=== PATIENT | female | born 1965 | race Two or more races ===

== ENCOUNTER 2025-01-25 11:01 | Outpatient (REF) | payer OTHER, SELFPAY | END 2025-01-25 11:02 | disposition home or self-care (01) | LOC: HO.LAB 11:01 | PROVIDERS: PCP Student in an Organized Health Care Education/Training Program; Visit Provider Urology | DX: R31.9 Hematuria, unspecified (principal); N39.0 Urinary tract infection, site not specified; Z13.9 Encounter for screening, unspecified; N20.0 Calculus of kidney; R80.9 Proteinuria, unspecified | CPT/HCPCS: 81003; 87086; 88112; 99202 ==

== ENCOUNTER 2025-01-25 11:01 | Outpatient (AMB) | payer OTHER, SELFPAY ==
--- NOTE | 2025-01-25 11:12 | A.OFFVIS_ITS ---
Intake Visit Reasons: history of kidney stones/hx hematuria Intake Note: New patient presents today for initial visit for hx of kidny stones/hx hematuria Urology Medication:None Blood Thinner:None Antibiotic Allergies:None Allergies No Known Allergies Allergy (Verified 01/25/25 11:13) Medication List - Last Reconciled 01/25/25 by Grayson Sweeney MD amlodipine 5 mg PO DAILY atorvastatin (Lipitor) 20 mg PO DAILY HPI Comments Details: 01/25/25 History of Present Illness - The patient is a 59-year-old female presenting with a history of kidney stones and hematuria. - She has had multiple episodes of kidney stones, with one leading to sepsis due to obstruction. - Recently, stones were present bilaterally, and she retrieved one stone, which was lost before analysis. - Due to insurance changes, she has to seek a new urologist. - She states was instructed that she has a history of calcium oxalate stones and should avoid calcium supplements. - Hematuria was noted approximately three months ago and may have been associated with kidney stones. - Today's urinalysis indicated leukocytes 2+, protein 1+, and no blood. Results - Urinalysis: Leukocytes 2+, Protein 1+, Blood negative [facility] Medical History (Updated 01/26/25 @ 07:37 by Grayson Sweeney MD) Gall bladder disease HTN (hypertension) Obesity Surgical History (Updated 01/25/25 @ 12:06 by Idania Rubio) Kidney stones History of tubal ligation Review of Systems Const All systems reviewed & are unremarkable except as noted in HPI and below Reports no additional complaints Eyes Reports no additional complaints ENT Reports no additional complaints Card Reports no additional complaints Resp Reports no additional complaints GI Reports no additional complaints Reports as per HPI Musc Reports no additional complaints Skin/Breast Reports system reviewed and no additional complaints, except as documented Neuro Reports no additional complaints Psych Reports no additional complaints Endo Reports no additional complaints Darion/Lymph Reports no additional complaints Aller/Immun Reports no additional complaints Physical Exam Const General: cooperative, healthy appearing and no acute distress Orientation/consciousness: patient oriented x3 HEENT Head: Yes normal to inspection, Yes normocephalic and Yes atraumatic Eyes Conjunctivae: conjunctivae normal Neck Neck: Yes normal visual inspection and Yes trachea midline Chest Chest palpation & inspection: normal inspection of the chest Resp Effort & Inspection: normal respiratory effort GI Inspection: Yes normal to inspection Neuro General: patient oriented x3 Psych Appearance: grossly normal Results AMB Urinalysis, Automated 2 UA Leukoctes 125 Yuli/uL Last Edit by Idania Rubio on 01/25/25 16:56 UA Nitrite Negative Last Edit by Idania Rubio on 01/25/25 16:56 UA Urobilinogen 17 mg/dL Last Edit by Idania Rubio on 01/25/25 16:56 UA Protein 0.3 mg/dL Last Edit by Idania Rubio on 01/25/25 16:56 UA pH 6.0 Last Edit by Idania Rubio on 01/25/25 16:56 UA Blood 0 Manish/uL Last Edit by Idania Rubio on 01/25/25 16:56 UA Specific [place] 1.020 Last Edit by Idania Rubio on 01/25/25 16:56 UA Ketone Positive Last Edit by Idania Rubio on 01/25/25 16:56 UA Bilirubin 17 mg/dL Last Edit by Idania Rubio on 01/25/25 16:56 UA Glucose 0 mg/dL Last Edit by Idania Rubio on 01/25/25 16:56 Results Reviewed Results Reviewed: Laboratory Last Values Urine pH (Auto) 6.0 01/25/25 15:38 Specific [place] (Auto) 1.020 01/25/25 15:38 Urine Protein (Auto) 0.3 mg/dL 01/25/25 15:38 Glucose (UA)(Auto) 0 mg/dL 01/25/25 15:38 Urine Ketones (Auto) Positive 01/25/25 15:38 Urine Blood (Auto) 0 Manish/uL 01/25/25 15:38 Urine Nitrite (Auto) Negative 01/25/25 15:38 Urine Bilirubin (Auto) 17 mg/dL 01/25/25 15:38 Urine Urobilinogen (Auto) 17 mg/dL 01/25/25 15:38 Leukocyte Esterase (Auto) 125 Yuli/uL 01/25/25 15:38 Assessment & Plan Assessment & Plan (1) Hematuria: Code(s): R31.9 - Hematuria, unspecified Category: Medical (2) Bilateral kidney stones: Code(s): N20.0 - Calculus of kidney Category: Medical (3) Proteinuria: Code(s): R80.9 - Proteinuria, unspecified Category: Medical Plan Plan - A CT urogram will be ordered to evaluate for kidney stones and any lesions in the urinary tract. - An office cystoscopy will be conducted to assess the bladder for abnormalities. - Urine will be sent for cytology and surveillance culture to rule out other causes of hematuria. - A nephrology referral will be considered if proteinuria persists on follow-up. - Blood work will be performed to assess kidney function prior to CT scan with contrast. Orders: Orders Urine Culture 01/25/25 N39.0 - Urinary tract infection, site not specified Urine Cytology 01/25/25 N39.0 - Urinary tract infection, site not specified Blood Urea Nitrogen 01/25/25 R31.9 - Hematuria, unspecified Creatinine 01/25/25 R31.9 - Hematuria, unspecified AMB Urinalysis Automated 01/25/25 Z13.9 - Encounter for screening, unspecified Medications: New atorvastatin (Lipitor) 20 mg PO DAILY 60 tabs 0RF amlodipine 5 mg PO DAILY 60 tabs 0RF Patient Instructions: The patient had an opportunity to ask questions regarding treatment plan. The patient expressed understanding and agreement with the above treatment plan. The patient is aware they should contact our office by phone for worsening of their current condition or the appearance of new symptoms. Compliance is encouraged with any medications and followup testing that is ordered. It is a privilege to be allowed the opportunity to participate in the urologic care of your patient. If you have any questions or concerns regarding treatment for the above conditions please do not hesitate to contact me. The office telephone contact is [phone]. This note is constructed in part using voice recognition software. While every effort has been made to ensure accuracy chief scientist errors may have been included. Yours sincerely, Grayson Sweeney MD Scribe Plan - Not visible on output: Patient was informed and verbally consented to the use of an ambient scribe for clinic note documentation during this visit. Coding Level of Care Code New Pt Level 4 (37018) Diagnoses Hematuria R31.9 Bilateral kidney stones N20.0 Proteinuria R80.9
--- OUTSIDE RECORDS SUMMARY | 2025-01-25 12:00 | XMS_ITS | Clinical Summary ---
Author Organization [facility] Address [address] [place] [address] Care Team Providers Care Curb Machine Operator Name Role Phone Unavailable Primary Care Provider Unavailabl e Source Comments PLEASE NOTE, if this patient is a minor, it may be UNLAWFUL to discuss sensitive information that is contained in these records (such as FAMILY PLANNING, MENTAL HEALTH or SUBSTANCE ABUSE) with the minor patient's parent or other person without the patient's specific authorization.[facility] Social History Tobacco Use Types Packs/Day Years Used Date Smoking Tobacco: Never Assessed Social Connections Answer Date Recorded Connectedness 0 04/02/2024 Financial Resource Strain Answer Date R ecorded Financial Resource Strain 0 2020 Stress Answer Date Recorded Stress 0 04/02/2021 Physical Activity Answer Date Recorded Physical Activity 0 04/02/2021 Food Insecurity Answer Date Recorded Food 0 04/16/2024 Transportation Needs Answer Date Record ed Transportation 0 04/02/2021 Housing Stability Answer Date Recorded Housing 0 04/02/2021 Safety and Environment Answer Date Дмитрий rded Safety 0 04/02/2021 Utilities Answer Date Recorded Utilities 0 04/02/2021 Employment Answer Date Recorded Stress 0 04/02/2024 Comments Unknown Sex and Gender Information Value Date Recorded Sex Assigned at Not on file Legal Sex Female 10:00 AM PDT Gender Identity Not on file Sexual Orientation Not on file Plan of Treatment Not on file Insurance [employer]
--- OUTSIDE RECORDS SUMMARY | 2025-01-25 12:00 | XMS_ITS | Clinical Summary ---
Author Organization [employer] Address [address] [place] [address] Care Team Providers Care Compressor Station Operator Name Role Phone Unavailable Primary Care Provider Unavailabl e Immunizations Immunization Administration Dates Next Due Hep B, adult 06/24/2020,05/25/2020 Influenza, IIV3, injectable 06/23/2022,1 07/25/2019,07/27/2019,2017,05/09/2017 Pfizer Covid-19 Vaccine 12+ 05/08/2023,1 09/11/2020,10/30/2020,2020 Pfizer Covid-19 Vaccine 12+ Bivalent 05/04/2022 Tdap 01/31/2016 Zoster, Recombinant 09/17/2022,07/17/2022 Social History Tobacco Use Types Packs/Day Years Used Date Smoking Tobacco: Never Assessed Comments Unknown Sex and Gender Information Value Date Recorded Sex Assigned at Female 05/21/2022 10:32 AM EDT Legal Sex Female 10:32 AM EDT Gender Identity Female 05/21/2022 10:32 AM EDT Sexual Orientation Straight 05/21/2022 10 :32 AM EDT Plan of Treatment Health Maintenance Due Date Last Done Comments CT Colonography 1966 Colonoscopy 1966 Colorectal Cancer Screening 1966 Depression Screening 1966 FIT DNA/Cologuard 1966 FIT 1966 FOBT 1966 HIV Screening 1966 Lipid Panel 1966 SDOH Screening 1966 Sigmoidoscopy 1966 Disability Screening 1966 Alcohol/Substance Use Screening 1978 Tobacco Screening 1978 Hepatitis C Screening 1984 Pap Smear 1987 Cervical Cancer Screening 1996 HPV/Cotest 1996 Mammogram 2006 Pneumococcal Vaccine: 50+ Years (1 of 1 - PCV) 2016 Hepatitis B Vaccines (3 of 3 - 19+ 3-dose series) 11/22/2020 06/24/2020, 05/25/2020 COVID-19 Vaccine (6 - 2023- season) 2024 05/08/2023, 05/04/2022, 07/11/2021, Additional history exists Influenza Vaccine (#1) 2025 2, 05/25/2020, 07/27/2019, Additional history exists DTaP/Tdap/Td Vaccines (2 - Td or Tdap) 01/30/2026 01/31/2016 RSV Patients and Patients Aged 60 years or older (1 - 1-dose 75+ series) 2041 Zoster Vaccines Completed 09/17/2022, 07/17/2022 HIB Vaccines Aged Out No longer eligi ble based on patient's age to complete this topic HPV Vaccines Aged Out No longer eligi ble based on patient's age to complete this topic Hepatitis A Vaccines Aged Out No long er eligible based on patient's age to complete this topic IPV Vaccines Aged Out No longer eligi ble based on patient's age to complete this topic Meningococcal B Vaccine Aged Out No l onger eligible based on patient's age to complete this topic Meningococcal Vaccine Aged Out No kathleen jeremi eligible based on patient's age to complete this topic RSV under 20 months Aged Out No longe r eligible based on patient's age to complete this topic Rotavirus Vaccines Aged Out No longer eligible based on patient's age to complete this topic Insurance BE [facility]
== END 2025-01-25 11:56 | disposition home or self-care (01) ==
LOC: HO.HUSH 11:02
PROVIDERS: PCP Student in an Organized Health Care Education/Training Program; Visit Provider Urology
DX: R31.9 Hematuria, unspecified (principal); N20.0 Calculus of kidney; R80.9 Proteinuria, unspecified
CPT/HCPCS: 99204

== ENCOUNTER 2025-04-07 12:28 | Outpatient (REF) | payer OTHER, SELFPAY ==
[2025-04-07 13:26] LABS: Blood Urea Nitrogen 12 mg/dL (9-16); Estimated Glomerular Filt Rate > 60
--- OUTSIDE RECORDS SUMMARY | 2025-04-07 15:58 | XMS_ITS | Clinical Summary ---
Author Organization [employer] Address [address] [facility] [address] [place] [address] Care Team Providers Care Cut Off Saw Tender Metal Name Role Phone Unavailable Primary Care Provider [...] 11/22/2020 06/24/2020, 05/25/2020 COVID-19 Vaccine (6 - season) 2025 05/08/2023, 05/04/2022, 07/11/2021, Additional history exists Influenza [...] age to complete this topic Insurance BE [facility]
--- OUTSIDE RECORDS SUMMARY | 2025-04-07 15:58 | XMS_ITS | Clinical Summary ---
Author Organization [facility] Address [address] [place] [address] Care Team Providers Care Bulb Grader Name Role Phone Unavailable Primary Care Provider [...]
== END 2025-04-07 12:29 | disposition home or self-care (01) ==
LOC: HO.LAB 12:28
PROVIDERS: Visit Provider Urology
DX: R31.9 Hematuria, unspecified (principal)
CPT/HCPCS: 36415; 82565; 84520

== ENCOUNTER 2025-04-08 13:31 | Outpatient (REF) | payer OTHER, SELFPAY ==
--- NOTE | ~2025-04-08 | CT_ITS ---
EXAMINATION: CT ABDOMEN PELVIS UROGRAPHY WITHOUT THEN WITH IV CONTRAST CLINICAL INFORMATION: N39.0 - Urinary tract infection, site not specified COMPARISON: None available. TECHNIQUE: Noncontrast CT of the abdomen and pelvis is performed followed by split bolus contrast-enhanced images using 85 cc Omnipaque 350 contrast. Postcontrast imaging is performed during the excretion phase. Sagittal and coronal reformatted images were obtained on the technologist's workstation for both the precontrast and postcontrast phases. This CT examination was performed using dose optimization techniques as appropriate, variously including the following: *Automated exposure control *Adjustment of mA and/or kV according to patient size (this includes techniques or standardized protocols for targeted exams where dose is matched to indication/reason for exam; i.e. extremities or head) *Use of iterative reconstruction technique FINDINGS: LOWER CHEST: No focal consolidation. No pleural effusions. LIVER: No focal lesions. GALLBLADDER/BILIARY TREE: Status post cholecystectomy. No intrahepatic biliary ductal dilatation. Prominence of the common bile duct measuring 0.7 cm in diameter is likely secondary to the postcholecystectomy status. PANCREAS: Unremarkable. SPLEEN: No splenomegaly. No focal lesion. ADRENAL GLANDS: No nodules. KIDNEYS AND URETERS: [place] of small calcifications in the lower pole of the left kidney could represent nonobstructive stones. No hydronephrosis or solid appearing renal lesions. No suspicious filling defects within the bilateral collecting system. BLADDER: Decompressed urinary bladder. No intravesical stones or obvious focal wall thickening. GASTROINTESTINAL TRACT: Postsurgical changes in the stomach. No bowel distention. Normal appendix in the right lower quadrant. Sigmoid colon diverticulosis. PERITONEUM/RETROPERITONEUM: No free fluid or free air. ABDOMINAL WALL: Tiny fat-containing umbilical hernia. LYMPH NODES: No lymphadenopathy. VASCULAR: Mild atherosclerotic disease with calcifications. No abdominal aortic aneurysm. Prominence of the pelvic vasculature and gonadal veins; the appropriate clinical setting this could represent pelvic congestion syndrome. PELVIC VISCERA: Lobulation of the left uterine contour, may be due to focal lesions such as leiomyoma or due to the adjacent ovary. OSSEUS STRUCTURES: Bilateral pars defect of L5. Grade 2 anterolisthesis of L5 on S1. Sclerotic changes at the level of the bilateral sacroiliac joints. No acute or suspicious osseous abnormality. CT/CT urogram IMPRESSION: 1. Multiple nonobstructing stones in the lower pole of the left kidney. 2. Lobulated appearance of the left side of the uterus could be due to uterine leiomyomas or adjacent ovary. Correlate with pelvic ultrasound. 3. Spondylolisthesis at L5-S1. 4. Findings suggestive of bilateral sacroiliitis. Electronically signed by: Gabrielle Morales MD 04/08/2025 03:07 PM EDT
--- OUTSIDE RECORDS SUMMARY | 2025-04-08 15:31 | XMS_ITS | Clinical Summary ---
Author Organization [facility] Address [address] [place] [address] Care Team Providers Care Drop Forge Operator Name Role Phone Unavailable Primary Care [...]
--- OUTSIDE RECORDS SUMMARY | 2025-04-08 15:31 | XMS_ITS | Clinical Summary ---
Author Organization [facility] Address [address] [place] [address] Care Team Providers Care Strategic Sourcing Manager Name Role Phone Suni Madera MD Primary Care Provider [phone] Social History Tobacco Use Types Packs/Day Years Used Date Smoking Tobacco: Never Assessed Comments Unknown Sex and Gender Information Value Date Recorded Sex Assigned at Not on file Legal Sex Female 4:52 PM EST Gender Identity Not on file Sexual Orientation Not on file Plan of Treatment Health Maintenance Due Date Last Done Comments Breast Cancer Screening 1966 DTaP,Tdap,and Td Vaccines (1 - Tdap) 1985 Hepatitis B Vaccines (1 of 3 - 19+ 3-dose series) 1985 Cervical Cancer Screening: P ap Smear 1987 Pneumococcal Vaccine: 50+ Ye ars (1 of 1 - PCV) 2016 Zoster Vaccines (1 of 2) 2016 Depression Screening 07/22/2024 COVID-19 Vaccine (1 - 2023-2 5 season) 2025 Influenza Vaccine (#1) 2025 HIB Vaccines Aged Out No longer eligi [...] on patient's age to complete this topic MMR Vaccines Aged Out No longer eligi ble based on patient's age to complete this topic Meningococcal ACWY Vaccine Aged Out N o longer eligible based on patient's age to complete this topic Meningococcal B Vaccine Aged Out No l onger eligible based on patient's age to complete this topic RSV Immunization Patients Un timbo 20 months Aged Out No longer eligible b ased on patient's age to complete this topic Varicella Vaccines Aged Out No longer eligible based on patient's age to complete this topic Advance Directives Documents on File Type Date Recorded Patient Asbestos Removal Worker Expl anation Health Care Decision (hx) 02/22/2021 AD HU DIRECTIVE Health Care Decision (hx) 02/22/2021 AD HU DIRECTIVE Health Care Decision (hx) 02/20/2021 AD HU DIRECTIVE Health Care Decision (hx) 02/20/2021 AD HU DIRECTIVE Health Care Decision (hx) 02/28/2017 AD HU DIRECTIVE Health Care Decision (hx) 02/28/2017 AD HU DIRECTIVE Health Care Decision (hx) 02/28/2017 AD HU DIRECTIVE Health Care Decision (hx) 02/28/2017 AD HU DIRECTIVE Health Care Decision (hx) 09/22/2014 AD HU DIRECTIVE Health Care Decision (hx) 09/22/2014 AD HU DIRECTIVE Health Care Decision (hx) 09/22/2014 AD HU DIRECTIVE Health Care Decision (hx) 09/22/2014 AD HU DIRECTIVE Care Teams Strategic Sourcing Manager Relationship Specialty Start Date End Date Suni Madera MD PCP - General Internal Medicine 04/13/21
--- OUTSIDE RECORDS SUMMARY | 2025-04-08 15:31 | XMS_ITS | Clinical Summary ---
Author Organization [employer] Address [address] [facility] [address] [place] [address] Care Team Providers Care Tank Shop Supervisor Name Role Phone Unavailable Primary Care Provider [...] age to complete this topic Insurance BE [facility]
== END 2025-04-08 13:32 | disposition home or self-care (01) ==
LOC: HO.CT 13:31
PROVIDERS: Visit Provider Urology
DX: N39.0 Urinary tract infection, site not specified (principal)
CPT/HCPCS: 74178

== ENCOUNTER → 2025-04-08 13:33 | Outpatient (BNV) | payer OTHER, SELFPAY | PROVIDERS: Visit Provider Radiology Body Imaging | DX: N20.0 Calculus of kidney (principal); K57.30 Diverticulosis of large intestine without perforation or abscess without bleeding | CPT/HCPCS: 74178 ==

== ENCOUNTER 2025-04-15 10:18 | Outpatient (AMB) | payer OTHER, SELFPAY ==
--- NOTE | 2025-04-15 10:39 | A.OFFVIS_ITS ---
Intake Visit Reasons: Cysto/CT Intake Note: Patient presents today for a cysto/US * 04/07 BUN: 12/Creatinine:0.62 * 04/08 CT Urogram Urology Medication:None Blood Thinner:None Antibiotic Allergies:None University Services Program Associate Required: Yes Allergies No Known Allergies Allergy (Verified 04/15/25 10:39) Medication List - Last Reconciled 04/15/25 by Grayson Sweeney MD amlodipine 5 mg PO DAILY atorvastatin (Lipitor) 20 mg PO DAILY HPI Comments Details: 04/15/2025--the patient is here in follow-up. She had an episode of gross hematuria a few months ago and was sent for evaluation for hematuria workup. The patient has had a history of kidney stones. The patient had a CT urogram which notes left kidney stones no suspicious renal masses. Urine cytology sent on 01/25/2025 was negative for malignant cells. Also on CT scan there is an area in the uterus that is lobulated, the patient indicates she is followed by her teacher theater arts for known uterine fibroids. History of Present Illness The patient is a 59-year-old female presenting with gross hematuria. She experienced an episode of gross hematuria a few months ago, leading to a hematuria workup. A CT urogram identified kidney stones in the left kidney, with no suspicious renal masses. Urine cytology from 01/25/25 was negative for malignant cells. 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 A 24-hour urine collection is planned to evaluate mineral excretion for kidney stone management. Minimal proteinuria was noted, and a nephrology referral is planned for further evaluation. Results - CT urogram: Left kidney stones, no suspicious renal masses - Urine cytology (01/25/25): Negative for malignant cells Plan 1. Gross Hematuria - Likely related to kidney stones; cystoscopy declined by patient 2. Kidney Stones - 24-hour urine collection planned to evaluate mineral excretion. - Nephrology referral for management and evaluation of minimal proteinuria. - left Shockwave lithotripsy scheduled 01/25/25 History of Present Illness - The patient is a 59-year-old female presenting with a history of kidney stones and hematuria. - She has had multiple episodes of kidney stones, with one leading to sepsis due to obstruction. - Recently, stones were present bilaterally, and she retrieved one stone, which was lost before analysis. - Due to insurance changes, she has to seek a new urologist. - She states was instructed that she has a history of calcium oxalate stones and should avoid calcium supplements. - Hematuria was noted approximately three months ago and may have been associated with kidney stones. - Today's urinalysis indicated leukocytes 2+, protein 1+, and no blood. Results - Urinalysis: Leukocytes 2+, Protein 1+, Blood negative [facility] Medical History Gall bladder disease HTN (hypertension) Obesity Surgical History Kidney stones History of tubal ligation Review of Systems Const All systems reviewed & are unremarkable except as noted in HPI and below Reports no additional complaints Eyes Reports no additional complaints ENT Reports no additional complaints Card Reports no additional complaints Resp Reports no additional complaints GI Reports no additional complaints Reports as per HPI Musc Reports no additional complaints Skin/Breast Reports system reviewed and no additional complaints, except as documented Neuro Reports no additional complaints Psych Reports no additional complaints Endo Reports no additional complaints Darion/Lymph Reports no additional complaints Aller/Immun Reports no additional complaints Results Reviewed Results Reviewed: Date of Service: 04/08/25 EXAMINATION: CT ABDOMEN PELVIS UROGRAPHY WITHOUT THEN WITH IV CONTRAST CLINICAL INFORMATION: N39.0 - Urinary tract infection, site not specified COMPARISON: None available. TECHNIQUE: Noncontrast CT of the abdomen and pelvis is performed followed by split bolus contrast-enhanced images using 85 cc Omnipaque 350 contrast. Postcontrast imaging is performed during the excretion phase. Sagittal and coronal reformatted images were obtained on the technologist's workstation for both the precontrast and postcontrast phases. This CT examination was performed using dose optimization techniques as appropriate, variously including the following: *Automated exposure control *Adjustment of mA and/or kV according to patient size (this includes techniques or standardized protocols for targeted exams where dose is matched to indication/reason for exam; i.e. extremities or head) *Use of iterative reconstruction technique FINDINGS: LOWER CHEST: No focal consolidation. No pleural effusions. LIVER: No focal lesions. GALLBLADDER/BILIARY TREE: Status post cholecystectomy. No intrahepatic biliary ductal dilatation. Prominence of the common bile duct measuring 0.7 cm in diameter is likely secondary to the postcholecystectomy status. PANCREAS: Unremarkable. SPLEEN: No splenomegaly. No focal lesion. ADRENAL GLANDS: No nodules. KIDNEYS AND URETERS: [place] of small calcifications in the lower pole of the left kidney could represent nonobstructive stones. No hydronephrosis or solid appearing renal lesions. No suspicious filling defects within the bilateral collecting system. BLADDER: Decompressed urinary bladder. No intravesical stones or obvious focal wall thickening. GASTROINTESTINAL TRACT: Postsurgical changes in the stomach. No bowel distention. Normal appendix in the right lower quadrant. Sigmoid colon diverticulosis. PERITONEUM/RETROPERITONEUM: No free fluid or free air. ABDOMINAL WALL: Tiny fat-containing umbilical hernia. LYMPH NODES: No lymphadenopathy. VASCULAR: Mild atherosclerotic disease with calcifications. No abdominal aortic aneurysm. Prominence of the pelvic vasculature and gonadal veins; the appropriate clinical setting this could represent pelvic congestion syndrome. PELVIC VISCERA: Lobulation of the left uterine contour, may be due to focal lesions such as leiomyoma or due to the adjacent ovary. OSSEUS STRUCTURES: Bilateral pars defect of L5. Grade 2 anterolisthesis of L5 on S1. Sclerotic changes at the level of the bilateral sacroiliac joints. No acute or suspicious osseous abnormality. IMPRESSION: 1. Multiple nonobstructing stones in the lower pole of the left kidney. 2. Lobulated appearance of the left side of the uterus could be due to uterine leiomyomas or adjacent ovary. Correlate with pelvic ultrasound. 3. Spondylolisthesis at L5-S1. Urine cytology- Collected: 01/25/25 Location: .LAB Received: 01/26/25 Diagnosis Urine, cytology: Negative for high-grade urothelial carcinoma. COMMENT: Review of the cytology preparation demonstrates a cellular specimen composed of squames and urothelial cells. Mixed inflammatory cells are noted. There is no significant atypia seen. Clinical History Urinary tract infection, site not specified Material Received Urine Gross Description Received is 5 cc of cloudy yellow fluid from which a ThinPrep slide is prepared. Assessment & Plan Assessment & Plan (1) Hematuria: Code(s): R31.9 - Hematuria, unspecified Category: Medical (2) Proteinuria: Code(s): R80.9 - Proteinuria, unspecified Category: Medical (3) Kidney stone on left side: Code(s): N20.0 - Calculus of kidney Category: Medical (4) Kidney stones, calcium oxalate monohydrate: Code(s): N20.0 - Calculus of kidney Category: Medical Plan Plan 1. Gross Hematuria - Likely related to kidney stones; cystoscopy declined by patient 2. Kidney Stones - 24-hour urine collection planned to evaluate mineral excretion. - Nephrology referral for management and evaluation of minimal proteinuria. Urinalysis in January protein 1+, today's urine trace proteinuria - left Shockwave lithotripsy scheduled Orders: Referrals Nephrology Referral N20.0 - Calculus of kidney, R80.9 - Proteinuria, unspecified Patient Instructions: The patient had an opportunity to ask questions regarding treatment plan. The patient expressed understanding and agreement with the above treatment plan. The patient is aware they should contact our office by phone for worsening of their current condition or the appearance of new symptoms. Compliance is encouraged with any medications and followup testing that is ordered. It is a privilege to be allowed the opportunity to participate in the urologic care of your patient. If you have any questions or concerns regarding treatment for the above conditions please do not hesitate to contact me. The office telephone contact is [phone]. This note is constructed in part using voice recognition software. While every effort has been made to ensure accuracy kitchen and bath designer errors may have been included. Yours sincerely, Grayson Sweeney MD Scribe Plan - Not visible on output: Patient was informed and verbally consented to the use of an ambient scribe for clinic note documentation during this visit. Coding Level of Care Code Est Pt Level 4 (22755) Complex EM visit Add On G2211 Diagnoses Hematuria R31.9 Proteinuria R80.9 Kidney stone on left side N20.0 Kidney stones, calcium oxalate monohydrate N20.0
== END 2025-04-15 11:21 | disposition home or self-care (01) ==
LOC: HO.HUSH 10:19
PROVIDERS: PCP Student in an Organized Health Care Education/Training Program; Visit Provider Urology
DX: R31.9 Hematuria, unspecified (principal); R80.9 Proteinuria, unspecified; N20.0 Calculus of kidney
CPT/HCPCS: 99214; G2211

== ENCOUNTER → 2025-04-15 10:18 | Outpatient (BNVA) | payer OTHER, SELFPAY | PROVIDERS: PCP Student in an Organized Health Care Education/Training Program; Visit Provider Urology | DX: N20.0 Calculus of kidney (principal); R80.9 Proteinuria, unspecified; R31.9 Hematuria, unspecified | CPT/HCPCS: 81003; 99212 ==

== ENCOUNTER 2025-05-05 14:19 | Outpatient (AMB) | payer OTHER, SELFPAY ==
--- NOTE | 2025-05-05 14:29 | HO.NEPHOV ---
Vital Signs 05/05/25 14:31 Height 5 ft Weight 184 lb BMI 35.9 BP 118/78 Blood Pressure Location Lt brachial Position Sitting Pulse 76 Pulse Source Pulse Oximeter Pulse Oximetry (%) 98 Oxygen Delivery Method Room Air Intake Visit Reasons: INP: Calculus of kidney, Proteinuria, confirmed Hotel Operations Manager Required: Yes Hotel Operations Manager Name: Juan Manuel [id number] Accompanied by: Self / Same As Patient Allergies No Known Allergies Allergy (Verified 05/05/25 14:33) HPI Comments Details: 59-year-old lady with past medical history of nephrolithiasis is referred to Nephrology Clinic for evaluation of proteinuria She underwent CT urogram which showed multiple nonobstructing stones in the lower pole of left kidney. 1-2 times a year for about 3 years and once she had complicated UTI and sepsis. hong konger interpretor: Juan Manuel Murdock [id number] [facility] Medical History Gall bladder disease HTN (hypertension) Obesity Surgical History Kidney stones History of tubal ligation Review of Systems Const Details: Const : no body aches, no chills, no excessive sweating and no fatigue Eyes: no blurry vision and no change in vision ENT: no bleeding gums and no change in voice, no dizziness Card: no chest pain, no shortness of breath, no orthopnea, no PND Resp: no cough, no excessive phlegm production, no SOB GI: no abdominal pain and no nausea, no vomiting : no hematuria, no urinary frequency and no difficulty voiding Musc: no abnormal gait, no bone pain Neuro: no abnormal movements, no weakness Psych: no behavioral changes and no change in appetite Endo: no change in body appearance, no fatigue Physical Exam General: not in any acute distress, comfortable, sitting on the chair Nutritional Appearance: well nourished and weight Eyes: normal position, no icterus Neck: No lymphadenopathy, no thyromegaly Resp: bilateral air entry equal, no added sounds present Cardio: normal S1, S2 heard, no murmur heard, no edema GI: soft, nontender, no guarding, no hepatosplenomegaly : bladder normal to inspection, bladder normal to palpation, no renal angle tenderness Skin: no rashes or lesions noted and elasticity normal Neuro: oriented to person, oriented to place, oriented to time and moves all extremities Results Reviewed Nephrology Results: BUN, (9-16) 12 mg/dL 04/07/25 Creatinine, (0.5-1.4) 0.62 mg/dL 04/07/25 Assessment & Plan Assessment & Plan (1) Bilateral kidney stones: Code(s): N20.0 - Calculus of kidney Category: Medical (2) Proteinuria: Code(s): R80.9 - Proteinuria, unspecified Category: Medical Plan Proteinuria: - has proteinuria on dipstick - will quantify proteinuria and see if she needs further workup Kidney stones: - secondary to calcium oxalate/phosphate, uric acid stones - urine pH:6.0 - pending litholink evaluation - will get PTH, Vitamin-D level, Phosphorus, Mg - advised the patient for fluid intake at least 3 L per day, more so in summer - low-sodium diet, increased dairy products with the meals, increased [place] and citrous intake (without added sugar) - decrease animal protein, avoid sugar sweetened sodas, fruit punch, grapefruit and large volume cranberry juice Orders: Orders Microalbumin, Random (w Creat) Today N20.0 - Calculus of kidney, R80.9 - Proteinuria, unspecified Total Protein Urine Random Today N20.0 - Calculus of kidney, R80.9 - Proteinuria, unspecified Vitamin D 25-OH Total Today N20.0 - Calculus of kidney, R80.9 - Proteinuria, unspecified Parathyroid Hormone Intact Today N20.0 - Calculus of kidney, R80.9 - Proteinuria, unspecified Phosphorus Today N20.0 - Calculus of kidney, R80.9 - Proteinuria, unspecified Basic Metabolic Panel Today N20.0 - Calculus of kidney, R80.9 - Proteinuria, unspecified UA and rflx microscopic Today N20.0 - Calculus of kidney, R80.9 - Proteinuria, unspecified Creatinine Urine Today N20.0 - Calculus of kidney, R80.9 - Proteinuria, unspecified Uric Acid Today N20.0 - Calculus of kidney, R80.9 - Proteinuria, unspecified Coding Level of Care Code New Pt Level 4 (14906) Diagnoses Bilateral kidney stones N20.0 Proteinuria R80.9
[2025-05-05 14:31] VITALS: BP 118/78; PULSE 76; O2SAT 98; BMI 35.9
--- OUTSIDE RECORDS SUMMARY | 2025-05-05 18:03 | XMS_ITS | Clinical Summary ---
Author Organization [employer] Address [address] [place] [address] Care Team Providers Care Tempering Oven Operator Name Role Phone Unavailable Primary Care [...] age to complete this topic Insurance BE [facility]
--- OUTSIDE RECORDS SUMMARY | 2025-05-05 18:03 | XMS_ITS | Clinical Summary ---
Author Organization [facility] Address [address] [place] [address] Care Team Providers Care Fitness Leader Name Role Phone Unavailable Primary Care Provider [...]
--- OUTSIDE RECORDS SUMMARY | 2025-05-05 18:03 | XMS_ITS | Clinical Summary ---
Author Organization [facility] Address [address] [place] [address] Care Team Providers Care Train Planner Name Role Phone Suni Madera MD Primary Care Provider [phone] Social History Tobacco Use Types Packs/Day Years [...] 5 season) 2025 Influenza Vaccine (#1) 2025 RSV Immunization Adult Patie nts (1 - 1-dose 75+ series) 2041 HIB Vaccines Aged Out No longer eligi [...] Documents on File Type Date Recorded Patient Premix Operator Concentrate Expl anation Health Care Decision (hx) 02/22/2021 [...] (hx) 09/22/2014 AD HU DIRECTIVE Care Teams Train Planner Relationship Specialty Start Date End Date Suni Madera MD PCP - General Internal Medicine 04/13/21
== END 2025-05-05 15:09 | disposition home or self-care (01) ==
LOC: HO.HKAS 14:20
PROVIDERS: PCP Student in an Organized Health Care Education/Training Program; Referring Provider Urology; Visit Provider Internal Medicine Critical Care Medicine
DX: N20.0 Calculus of kidney (principal); R80.9 Proteinuria, unspecified
CPT/HCPCS: 99204

== ENCOUNTER → 2025-05-05 14:19 | Outpatient (BNVA) | payer OTHER, SELFPAY | PROVIDERS: PCP Student in an Organized Health Care Education/Training Program; Referring Provider Urology; Visit Provider Internal Medicine Critical Care Medicine | DX: N20.0 Calculus of kidney (principal); R80.9 Proteinuria, unspecified | CPT/HCPCS: 99202 ==

== ENCOUNTER 2025-05-18 10:51 | Outpatient (REF) | payer OTHER, SELFPAY ==
[2025-05-18 13:09] LABS: Appearance Urine Clear; Glucose Urine UA Negative (Negative); PH 6.0 (5.0-9.0); Specific Gravity - Urine >= 1.030 (1.005-1.025); UMIC TRIGGER UA YES
--- OUTSIDE RECORDS SUMMARY | 2025-05-18 13:56 | XMS_ITS | Clinical Summary ---
Author Organization [facility] Address [address] [place] [address] Care Team Providers Care Driver/Merchandiser Name Role Phone Suni Madera MD Primary Care Provider [phone] Social History Tobacco Use Types Packs/Day Years [...] Documents on File Type Date Recorded Patient Environmental Monitoring Technician Expl anation Health Care Decision (hx) 02/22/2021 [...] (hx) 09/22/2014 AD HU DIRECTIVE Care Teams Driver/Merchandiser Relationship Specialty Start Date End Date Suni Madera MD PCP - General Internal Medicine 04/13/21
--- OUTSIDE RECORDS SUMMARY | 2025-05-18 13:56 | XMS_ITS | Clinical Summary ---
Author Organization [employer] Address [address] [place] [address] Care Team Providers Care Dopeman Name Role Phone Unavailable Primary Care Provider [...] age to complete this topic Insurance BE [facility]
[2025-05-18 14:16] LABS: Parathyroid Hormone Intact 126.8 pg/mL (8.7-77.1)
[2025-05-18 14:22] LABS: Microalbum/Creatinine Ratio Ur 6.6 ug/mg cr (<30); Total Protein Urine Random 24 mg/dL (<12)
[2025-05-18 18:33] LABS: Anion Gap 13 (12-20); Blood Urea Nitrogen 13 mg/dL (9-16); Calcium 9.3 mg/dL (8.4-10.2); Carbon Dioxide 26 mmol/L (22-29); Chloride 107 mmol/L (96-108); Estimated Glomerular Filt Rate > 60; Potassium 3.2 mmol/L (3.3-5.1); Sodium 143 mmol/L (135-145); Uric Acid 5.8 mg/dL (2.4-5.7)
== END 2025-05-18 10:52 | disposition home or self-care (01) ==
LOC: HO.HKASLDS 10:51
PROVIDERS: Visit Provider Internal Medicine Critical Care Medicine
DX: N20.0 Calculus of kidney (principal); R80.9 Proteinuria, unspecified
CPT/HCPCS: 36415; 80048; 81001; 81003; 82043; 82306; 82570; 83970; 84100; 84156; 84550

== ENCOUNTER 2025-05-26 07:33 | Day surgery (SDC) | payer OTHER, SELFPAY ==
--- OUTSIDE RECORDS SUMMARY | 2025-05-12 07:58 | XMS_ITS | Clinical Summary ---
Author Organization [facility] Address [address] [place] [address] Care Team Providers Care Instrument Lens Generator Name Role Phone Unavailable Primary Care Provider [...]
--- OUTSIDE RECORDS SUMMARY | 2025-05-12 07:58 | XMS_ITS | Clinical Summary ---
Author Organization [employer] Address [address] [place] [address] Care Team Providers Care Project Coach Name Role Phone Unavailable Primary Care Provider [...] age to complete this topic Insurance BE [facility]
--- OUTSIDE RECORDS SUMMARY | 2025-05-12 07:59 | XMS_ITS | Clinical Summary ---
Author Organization [facility] Address [address] [place] [address] Care Team Providers Care Clinical Support Manager Name Role Phone Suni Madera MD Primary Care Provider [phone] Social History Tobacco Use Types Packs/Day Years [...] Documents on File Type Date Recorded Patient Solution Analyst Expl anation Health Care Decision (hx) 02/22/2021 [...] (hx) 09/22/2014 AD HU DIRECTIVE Care Teams Clinical Support Manager Relationship Specialty Start Date End Date Suni Madera MD PCP - General Internal Medicine 04/13/21
[2025-05-24 07:18] VITALS: BMI 35.9
--- NOTE | 2025-05-24 11:41 | HO.ANESPROP2 ---
Documented by User: Sheree Baez NP 05/24/25 11:41 HPI - Anesthesia Eval Consult details Narrative: 60 yr old female for left lithotripsy ESW Anesthesia Pre-Procedure Meds Is the patient on any of the following meds?: GLP1/DPP4 PMFSH Active Problems Active Problems: All Active Problems Kidney stones, calcium oxalate monohydrate (Acute) Kidney stone on left side (Acute) Proteinuria (Acute) Bilateral kidney stones (Acute) Hematuria (Acute) Past Medical History Medical History Gall bladder disease HTN (hypertension) Obesity Surgical History Surgical History Kidney stones History of tubal ligation Social History Social History Patient Tobacco Use Status: Never used Tobacco Use of substances other than those prescribed or required for medical reasons: No Advance Directives: No Advance Directives Information Provided: Yes Meds Allergies Allergy/AdvReac Type Severity Reaction Status Date / Time No Known Allergies Allergy Verified 05/05/25 14:33 Home Medications ?Medication ?Instructions ?Recorded ?Confirmed ?Last Taken ?Type tirzepatide 7.5 mg/0.5 mL 7.5 mg subcut QWEEK 05/05/25 05/24/25 Unknown History subcutaneous pen injector (Antonio) Exam Height,Weight and Vital Signs: Height 5 ft Weight 83.461 kg Documented by User: Ranjit Presley MD 05/26/25 08:58 PMFSH Past Medical History Medical History Gall bladder disease HTN (hypertension) Obesity Functional capacity: independent ambulation Family History Family history of problems with anesthesia: No Surgical History Surgical History Kidney stones History of tubal ligation History of Problems with Anesthesia: No Social History Social History Patient Tobacco Use Status: Never used Tobacco Use of substances other than those prescribed or required for medical reasons: No Advance Directives: No Advance Directives Information Provided: Yes Meds Allergies Allergy/AdvReac Type Severity Reaction Status Date / Time No Known Allergies Allergy Verified 05/05/25 14:33 Home Medications ?Medication ?Instructions ?Recorded ?Confirmed ?Last Taken ?Type tirzepatide 7.5 mg/0.5 mL 7.5 mg subcut QWEEK 05/05/25 05/24/25 Unknown History subcutaneous pen injector (Antonio) Exam Exam Date and Time: 05/26/25 Airway Mallampati Class: III TM Dist: >3cm Heart: normal Lungs: normal Other: normal Assessment and Plan Assessment Anesthesia Assessment: Anesthesia Plan Discussed and Chart Reviewed Final Anesthetic Review Family History of Problems with Anesthesia: No History of Problems with Anesthesia: No NPO: Yes ASA Class: II Final Preanesthetic Review: No Changes in Pt Med Stat, Meds/Allgs Chart Reviewed, Consent Obtained/Reviewed and Anes Risks/Benef Reviewed Patient Risk: Low Procedure Risk: Low Anesthetic Plan Anesthetic Plan: GA Disposition: Standard PACU
[2025-05-26] VITALS (7 sets, daily range): BP systolic 111–121; BP diastolic 71–77; PULSE 67–86; RESP 14–22; TEMP 36.2–36.9; O2SAT 96–97; BMI 35.1
--- NOTE | ~2025-05-26 | XR_ITS ---
EXAMINATION: XR ABDOMEN 1 VIEW (KUB) HISTORY: N20.0 - Calculus of kidney COMPARISON: Correlation is made with a CT urogram dated 04/08/2025. FINDINGS: Two supine views of the abdomen are submitted. The bowel gas pattern is unremarkable, without evidence of mechanical obstruction. There are surgical clips in the right upper quadrant. A 10 mm calcification is seen overlying the lower pole of the left renal shadow. There are phleboliths in the pelvis. There are no abnormal soft tissue masses. There is degenerative disc disease of the lower lumbar spine. XR/XR KUB IMPRESSION: 10 mm calcification overlying the lower pole of the left renal shadow. Electronically signed by: Joselito Perez MD 05/26/2025 08:01 AM [facility]
[2025-05-26] MEDS: Lactated Ringers 1,000 ML 100 ML IVCONT (08:14)
--- NOTE | 2025-05-26 08:31 | MHC.SHP ---
Pre-Procedural Eval Section A - 24 Hr Update-Section A only Date of Service: 05/26/25 The patient is an INPATIENT: No The patient has been examined within 24 hours of the surgical procedure. The History & Physical has been completed within 30 days and I have reviewed it.: Yes Section B - Complete if H&P > 30 days Chief Complaint: Calculus of kidney, Left Allergies: Allergies Allergy/AdvReac Type Severity Reaction Status Date / Time No Known Allergies Allergy Verified 05/05/25 14:33 Plan Diagnosis/Plan: Unchanged I have reviewed the history and physical and performed a pertinent physical examination on my patient. No changes have occurred unless specified. Left ESWL. Discussed risks to include but not limited to, blood in the urine, bruising to the skin, kidney hematoma, possible need for another procedure if a stone fragment obstructs the ureter while passing, possible need to repeat procedure if stone is not completely fragmented. Time Spent With Patient Time: Total time managing care of this patient today ____ minutes.
--- NOTE | 2025-05-26 08:31 | W.PM.OPN ---
Operative Note Operative Note Date of Service: 05/26/25 Narrative: PreOperative Diagnosis:? ? Left Renal stone Post Operative Diagnosis:?Left? Renal stone Procedure:?Left? ESWL Surgeon:?Dr Grayson Sweeney Anesthesia:? General Indications for procedure: The patient understands there is a risk of bruising or hematoma to the kidney, infection, and stone migration following the procedure and subsequent intervention may be required.? - Imaging 8x8 mm cluster of renal calculi mid to lower pole Procedure: After informed consent was verified the patient was brought to the operating room and placed in a supine position.? Anesthesia was performed per protocol. Safety pause time-out was performed. Imaging was displayed in the room and laterality confirmed. ESWL was performed.?The stone was visualized on both fluoroscopy and ultrasound.? Shockwave lithotripsy was performed, with a maximum rate of 120 hertz. After the first 300 shocks a pause for 3 minutes was completed.? A total of 2500 shocks to a maximum of power of 18 with a maximum rate of 120 hertz.? Good fragmentation of the stone was appreciated. The patient tolerated the procedure well and was transferred to the recovery area upon completion. Complications: None
== END 2025-05-26 10:59 | disposition home or self-care (01) ==
PROVIDERS: Visit Provider Urology
PROC: (CPT 50590; principal; 2025-05-26 09:30)
DX: N20.0 Calculus of kidney (principal); Z87.442 Personal history of urinary calculi; R31.9 Hematuria, unspecified; R80.9 Proteinuria, unspecified; I10 Essential (primary) hypertension; E66.9 Obesity, unspecified; Z79.899 Other long term (current) drug therapy; Z98.51 Tubal ligation status; Z90.49 Acquired absence of other specified parts of digestive tract
CPT/HCPCS: 50590; 74018; J0131; J0690; J1100; J2405; J2704; J3010

== ENCOUNTER → 2025-05-26 07:33 | Outpatient (BNV) | payer OTHER, SELFPAY | PROVIDERS: Visit Provider Urology | DX: N20.0 Calculus of kidney (principal) | CPT/HCPCS: 50590 ==

== ENCOUNTER → 2025-05-26 07:38 | Outpatient (BNV) | payer OTHER, SELFPAY | PROVIDERS: Visit Provider Radiology Diagnostic Radiology | DX: N20.0 Calculus of kidney (principal) | CPT/HCPCS: 74018 ==

== ENCOUNTER 2025-07-19 11:01 | Outpatient (REF) | payer OTHER, SELFPAY ==
--- NOTE | ~2025-07-19 | US_ITS ---
CLINICAL HISTORY: N20.0 - Calculus of kidney US of kidneys Comparison: None provided Findings: Right kidney is normal in size, echogenicity and morphology, 11.2 cm in length. No calculus, mass or hydronephrosis. Left kidney is normal in size, echogenicity and morphology, 10.3 cm in length. Dilated calyx in the lower pole contains 5 mm calculus, another 4 mm calculus in the lower pole in the vicinity. No hydronephrosis or mass. Limited color Doppler demonstrates unremarkable bilateral blood flow. Impression: Nonobstructing left nephrolithiasis. This document has been electronically signed by: Dhara Gupta MD on 07/20/2025 14:28:40
--- OUTSIDE RECORDS SUMMARY | 2025-07-19 12:52 | XMS_ITS | Clinical Summary ---
Author Organization [employer] Address [address] [place] [address] Care Team Providers Care Light Equipment Operator Name Role Phone Unavailable Primary Care [...] age to complete this topic Insurance BE [facility]
--- OUTSIDE RECORDS SUMMARY | 2025-07-19 12:52 | XMS_ITS | Clinical Summary ---
Author Organization [facility] Address [address] [place] [address] Care Team Providers Care Truckman Name Role Phone Suni Madera MD Primary Care Provider [phone] Social History Tobacco Use Types Packs/Day Years [...] Depression Screening 07/22/2024 COVID-19 Vaccine (1 - 2024-2 6 season) 2025 Influenza Vaccine (#1) 2025 RSV [...] Documents on File Type Date Recorded Patient Rn Camp Expl anation Health Care Decision (hx) 02/22/2021 [...] (hx) 09/22/2014 AD HU DIRECTIVE Care Teams Truckman Relationship Specialty Start Date End Date Suni Madera MD PCP - General Internal Medicine 04/13/21
== END 2025-07-19 11:02 ==
LOC: HO.US 11:01
PROVIDERS: Visit Provider Urology
DX: N20.0 Calculus of kidney (principal)
CPT/HCPCS: 76775

== ENCOUNTER → 2025-07-19 11:05 | Outpatient (BNV) | payer OTHER, SELFPAY | PROVIDERS: Visit Provider Radiology Diagnostic Radiology | DX: N20.0 Calculus of kidney (principal) | CPT/HCPCS: 76775 ==